=== PATIENT | female | born 1990 | race Asian ===

== ENCOUNTER 2017-02-01 12:30 | Inpatient (IN) | payer SELFPAY ==
[~2017-02-01] VITALS: Ht 165 cm; Wt 63.5 kg
[2017-02-03 14:56] LABS: BASOPHILS % (AUTO) 0.5 % (0.0-2.0); EOSINOPHILS % (AUTO) 0.6 % (0.0-4.0); HEMATOCRIT 36.8 % (36-48); HEMOGLOBIN 12.5 g/dL (12.0-16.0); LYMPHOCYTES # (AUTO) 1.4 K/uL (1.0-5.5); LYMPHOCYTES % (AUTO) 18.3 % (20.5-51.5); MEAN CORPUSCULAR HEMOGLOBIN 31 pg (27-31); MEAN CORPUSCULAR HGB CONC 34 % (32-36); MEAN CORPUSCULAR VOLUME 92 fL (79.0-98.0); MONOCYTES # (AUTO) 0.6 K/uL (0.0-1.0); MONOCYTES % (AUTO) 7.5 % (1.7-9.3); NEUTROPHILS # (AUTO) 5.7 K/uL (1.8-7.7); NEUTROPHILS % (AUTO) 73.1 % (40.0-70.0); PLATELET COUNT (AUTO) 151 K/uL (130-430); RED BLOOD CELL COUNT(AUTO) 3.99 MIL/uL (4.2-6.2); RED CELL DISTRIBUTION WIDTH 14.1 % (9.0-15.0); WHITE BLOOD COUNT (AUTO) 7.7 K/uL (4.8-10.8)
[2017-02-03 15:01] LABS: BILIRUBIN,URINE NEGATIVE (NEGATIVE); BLOOD, URINE NEGATIVE (NEGATIVE); CLARITY/URINE CLEAR (CLEAR); COLOR,URINE YELLOW (YELLOW); GLUCOSE,URINE NEGATIVE (NEGATIVE); KETONES,URINE NEGATIVE (NEGATIVE); LEUKOCYTE ESTERASE ,URINE 3+ (NEGATIVE); NITRITE, URINE NEGATIVE (NEGATIVE); PROTEIN URINE NEGATIVE (NEGATIVE); UROBILINOGEN,URINE 0.2 (0.2-1.0)
[2017-02-03 15:18] LABS: BACTERIA,URINE MODERATE /HPF (None Seen); RBC,URINE 0-3 /HPF (0-3)
[2017-02-04] MEDS ORDERED: LR 1,000 ML IV SCH ×2 (05:51→08:22)
[2017-02-04] MEDS ORDERED: CITRIC ACID/SODIUM CITRATE 30 ML UDC PO ONE (06:00)
[2017-02-04] MEDS ORDERED: CLINDAMYCIN 900 mg/50mL D5W 50 ML IV ONE ×2 (07:00→07:15)
[2017-02-04] MEDS ORDERED: OXYTOCIN/NORMAL SALINE 1,000 ML IV ONE (07:29)
[2017-02-04] MEDS ORDERED: HYDROcodone/ACETAMIN 5-325 MG TAB (NORCO/ VICODIN) PO PRN (07:30)
[2017-02-04] MEDS ORDERED: MEASLES,MUMPS&RUBELLA VACC/PF 12500 UNIT/0.5 ML VIAL SUBQ PRN (07:30)
[2017-02-04] MEDS ORDERED: ANUSOL 1 EA SUPP.RECT (PREPARATION H) RC PRN (07:30)
[2017-02-04] MEDS ORDERED: LANOLIN 7 GM OINT. TP PRN (07:30)
[2017-02-04] MEDS ORDERED: OXYCODONE/ACETAMINOPHEN 5-325 TABLET PO PRN (07:30)
[2017-02-04] MEDS ORDERED: DOCUSATE SODIUM 100 MG CAPSULE PO PRN (07:30)
[2017-02-04] MEDS ORDERED: SIMETHICONE 80 MG TAB.CHEW PO PRN (07:30)
[2017-02-04] MEDS ORDERED: KETOROLAC TROMETHAMINE 60 MG/2 ML VIAL IM PRN (08:30)
[2017-02-04] MEDS ORDERED: MEPERIDINE HCL/PF 50 MG/ML AMP IVP PRN ×2 (08:30)
[2017-02-04] MEDS ORDERED: MEPERIDINE HCL/PF 25 MG/ML DISP.SYRIN IVP PRN (08:30)
[2017-02-04] MEDS ORDERED: MORPHINE SULFATE 10MG/10ML PF AMP SP SCH (08:30)
[2017-02-04] MEDS ORDERED: METOCLOPRAMIDE HCL 10 MG/2 ML VIAL IVP PRN (08:30)
[2017-02-04] MEDS ORDERED: DIPHENHYDRAMINE INJ 50 MG/ML VIAL IM PRN (08:30)
[2017-02-04] MEDS ORDERED: ONDANSETRON HCL 4 MG/2 ML VIAL IVP PRN (08:30)
[2017-02-04] MEDS ORDERED: NALOXONE HCL 0.4 MG/ML AMP (NARCAN) IVP PRN (08:30)
[2017-02-04 08:45] VITALS: BP_SYST 104
[2017-02-04] MEDS ORDERED: DIPHENHYDRAMINE INJ 50 MG/ML VIAL ONE (09:33)
[2017-02-04] MEDS ORDERED: TEMAZEPAM 15 MG CAPSULE PO PRN (21:00)
[2017-02-05 06:33] LABS: BASOPHILS % (AUTO) 0.1 % (0.0-2.0); EOSINOPHILS # (AUTO) 0.1 K/uL (0.0-0.4); EOSINOPHILS % (AUTO) 0.6 % (0.0-4.0); HEMATOCRIT 28.3 % (36-48); HEMOGLOBIN 9.6 g/dL (12.0-16.0); LYMPHOCYTES # (AUTO) 1.2 K/uL (1.0-5.5); LYMPHOCYTES % (AUTO) 11.1 % (20.5-51.5); MEAN CORPUSCULAR HEMOGLOBIN 32 pg (27-31); MEAN CORPUSCULAR HGB CONC 34 % (32-36); MEAN CORPUSCULAR VOLUME 93 fL (79.0-98.0); MONOCYTES # (AUTO) 0.7 K/uL (0.0-1.0); MONOCYTES % (AUTO) 6.2 % (1.7-9.3); NEUTROPHILS # (AUTO) 8.6 K/uL (1.8-7.7); PLATELET COUNT (AUTO) 125 K/uL (130-430); RED BLOOD CELL COUNT(AUTO) 3.06 MIL/uL (4.2-6.2); RED CELL DISTRIBUTION WIDTH 14.1 % (9.0-15.0); WHITE BLOOD COUNT (AUTO) 10.6 K/uL (4.8-10.8)
[2017-02-05] MEDS: OXYCODONE/ACETAMINOPHEN 5-325 TABLET PO PRN (08:02)
[2017-02-05] MEDS: IBUPROFEN 600 MG TABLET PO SCH ×2 (12:57→17:48)
[2017-02-06] MEDS: IBUPROFEN 600 MG TABLET PO SCH ×3 (00:38→11:49)
[2017-02-06] MEDS: OXYCODONE/ACETAMINOPHEN 5-325 TABLET PO PRN (08:52)
== END 2017-02-06 16:00 | disposition home or self-care (01) | DRG 766 ==
LOC: SPU 02-04 04:55
PROVIDERS: ADMIT Obstetrics & Gynecology; ATTEND Obstetrics & Gynecology
PROC: 3E0134Z Introduction of Serum, Toxoid and Vaccine into Subcutaneous Tissue, Percutaneous Approach (ICD-10-PCS; 2017-02-04)
PROC: 10D00Z1 Extraction of Products of Conception, Low, Open Approach (ICD-10-PCS; principal; 2017-02-04 07:30)
DX: O48.1 Prolonged pregnancy (principal); Z23 Encounter for immunization; Z88.0 Allergy status to penicillin; Z37.0 Single live birth; Z3A.40 40 weeks gestation of pregnancy; Z88.7 Allergy status to serum and vaccine; Z88.8 Allergy status to other drugs, medicaments and biological substances
CPT/HCPCS: 36415; 81000-TC; 85025; 86886; 86900; 86901; 94760; J1200; J1885; J2590; J3490; J7120